=== PATIENT | female | born 1980 | race Caucasian/White ===

== ENCOUNTER 2020-08-05 17:40 | Emergency (ER) | payer OTHER, SELFPAY ==
[2020-08-05 17:49] VITALS: BP 128/75; PULSE 71; RESP 19; TEMP 36.6; O2SAT 97; BMI 25.0
[2020-08-05 18:48] LABS: RBC Urine None Seen (0-5/HPF); WBC Urine None Seen (0-5/HPF)
[2020-08-05 19:10] LABS: Bacteria Urine Moderate (10-30); Culture Indicated Urine Cult Not Indicated; Squamous Epithelial Cell Urine 0-1 /HPF (0-5/HPF)
--- NOTE | 2020-08-05 19:14 | DI.US.S_ITS ---
PROCEDURE: US OB <= 14 WEEKS FETUS INDICATIONS: CRAMPING OUTSIDE/PRIOR DATING DATA: Last menstrual period (LMP): 05/23/20. LMP-based estimated date of delivery (SIMON): 02/27/21 . First dating scan (date and location): This study 08/05/20 . Estimated date of delivery (SIMON) from first dating scan: demise. . TECHNIQUE: Real-time scanning was performed of the fetus and maternal pelvic organs, with image documentation. Endovaginal scanning was also performed to better visualize the fetus and maternal ovaries. COMPARISON: None. FINDINGS: Embryo: The crown-rump length is 1.3 cm, which would correlate with a gestational age of 7 weeks 3 days. No cardiac activity is observed. The gestational sac is irregular, and low in position consistent with spontaneous in progress. Measurement variability in dating: +/- 4 weeks by LMP, +/- 7 days by mean sac diameter (use before 6 weeks gestation if crown-rump length not able to be measured), +/- 5 days by crown-rump length (up to 8 weeks 6 days gestation), +/- 7 days by crown-rump length (up to 13 weeks 6 days gestation). Maternal organs: Ovaries normal on the right and not well seen on the left.. Limited images through the kidneys demonstrate no hydronephrosis. IMPRESSION: demise, spontaneous in progress, a crown-rump length of 1.3 cm would correlate with a gestational age of 7 weeks 3 days and no cardiac activity was observed over the course of the examination. Dictated by: Devan Rocha M.D. on 08/05/2020 at 20:30 Approved by: Devan Rocha M.D. on 08/05/2020 at 20:33
[2020-08-05 19:37] LABS: Add Manual Diff / Slide Review NO; Basophils Absolute Auto 100 /uL (0-100); Basophils Percent Auto 0.9 % (0-2); Eosinophils Absolute Auto 300 /uL (0-450); Eosinophils Percent Auto 2.4 % (2-4); Hematocrit 37.9 % (36-46); Hemoglobin 12.9 g/dL (12.0-16.0); Lymphocytes Absolute Auto 2800 /uL (1100-4500); Lymphocytes Percent Auto 24.7 % (25-40); Mean Corpuscular HGB Conc 34.1 % (30-36); Monocytes Absolute Auto 900 /uL (0-900); Monocytes Percent Auto 7.6 % (3-14); Neutrophils Absolute Auto 7400 /uL (1500-7000); Neutrophils Percent Auto 64.4 % (50-75); Platelet Count 201 X10^3/uL (150-400); Red Blood Cell Count 4.31 X10^6/uL (4.0-5.2); Red Cell Distribution Width 12.5 % (11.6-14.8); White Blood Cell Count 11.5 X10^3/uL (4.5-11.0)
[2020-08-05 19:52] LABS: Prothrombin Time 11.2 SECONDS (10.1-12.7)
[2020-08-05 19:55] LABS: PTT Partial Thromboplastin Tim 29 SECONDS (26.4-36.2)
--- NOTE | 2020-08-05 20:27 | ED_ITS ---
HPI - <Jeff Platt [facility] - Last Filed: 08/05/20 21:27> General Chief complaint: OB/Uterine Contractions Stated complaint: 10wks preg, possible miscarriage Time Seen by Provider: 08/05/20 19:05 Source: patient Mode of arrival: Family Vehicle Limitations: no limitations History of Present Illness HPI Narrative: This is a 39-year-old female, LMP on 05/23/20 with with positive home tests presents to ED with intermittent low abdominal cramping discomfort and small amount of vaginal spotting which started yesterday. Patient reports previous 2 pregnancies had spontaneous AB around 10th week. Patient denies chest pain, breathing difficulty, or lightheadedness. Patient recently moved to town and has not established primary care physician or OB care at this time. Patient denies urinary symptoms such as urgency, frequency, dysuria. Patient had not had passing clots or tissues. In the past with spontaneous ED, patient had not required surgical interventions and had passed product of conception on her own. Patient had not taken any medications for abdominal cramps. Patient reports she is aware of her blood type as A negative. Date of Last Menstrual Period: 05/23/20 Related Data Home Medications Medication Instructions Recorded Confirmed No Known Home Medications 08/05/20 08/05/20 Allergies Allergy/AdvReac Type Severity Reaction Status Date / Time No Known Drug Allergies Allergy Verified 08/05/20 17:55 Review of Systems <Jeff Platt [facility] - Last Filed: 08/05/20 21:27> Review of Systems Narrative: General: Denies fever, chills, fatigue, malaise, sweats. Respiratory: Denies dyspnea, cough, wheezing, hemoptysis, sputum. Cardiovascular: Denies chest pain, palpitations, orthopnea, edema. Gastrointestinal: Denies nausea, vomiting, abdominal pain, diarrhea, constipation, melena. : See HPI Musculoskeletal: Denies weakness, joint pain or bony pain. Skin: Denies rash, skin lesions, or other. Neurologic: Denies weakness, headache, numbness, change in speech, confusion, seizures, incoordination. Psychiatric: No concerning psychosocial issues. PMFSH - <Jeff Vallesque [facility] - Last Filed: 08/05/20 21:27> Past Medical History Medical history: Reports no medical history Surgical history: Reports no surgical history [employer]ENT[employer] history: Reports Spontaneous (x2) Date of Last Menstrual Period: 05/23/20 Exam <SALOME Ortiz - Last Filed: 08/05/20 21:27> Narrative Exam Narrative: GEN: Alert, oriented x 3, well appearing and nourished, and in no acute distress. Head: Normal cephalic, atraumatic. No scalp or temporal tenderness, palpable mass or rash. EYES: Pupils are equal, round, and reactive to light and accommodation. Extraocular muscles are intact bilaterally. There is no subconjunctival hemorrhage, exudate and sclera non-icteric. ENT: Hearing grossly intact. Nose without bleeding, purulent discharge or deviation. Mucous membrane moist, no mucosal lesion. Throat without erythema, tonsillar hypertrophy or exudate. Uvula in midline, airway patent. Neck: Trachea in midline. No JVD, non-tender without lymphadenopathy. No masses or thyroid megaly. Supple, non-tender and no meningeal signs. CARDIAC: Normal regular rate and rhythm without murmurs, gallops, or rubs. No chest wall tenderness. No peripheral edema, cyanosis or pallor. Capillary refill is less than 2 seconds. RESPIRATORY: Lungs are clear to auscultate bilaterally. No cough, wheezes, rales, or rhonchi. No stridor, respiratory distress, increase work of breathing, or accessary muscle used. ABD: Abdomen soft and non-distended. Bilateral lower abdomen tender to palpate. No guarding or rebound tenderness to palpate. Bowel sounds are normal in all 4 quadrants. There is no palpable masses or organomegaly. EXT: Full painless ROM of all extremities with no loss of sensation, strength, effusion or edema. SKIN: Warm, dry, normal color for patient. No erythema, lesions or rash over visible areas. BACK: Nontender without deformity or crepitance. No flank tenderness. NEUROLOGICAL: Alert and oriented to place, time and person. Sensation and motor function intact bilaterally. No facial droops, dysphasia. PSYCHIATRIC: Good judgement and reason, without hallucinations, abnormal affect or abnormal behaviors during the examination. Patient is not suicidal. Initial Vital Signs Initial Vital Signs: Vital Signs Temperature 97.8 F 08/05/20 17:49 Pulse Rate 71 08/05/20 17:49 Respiratory Rate 19 08/05/20 17:49 Blood Pressure 128/75 08/05/20 17:49 Pulse Oximetry 97 08/05/20 17:49 <Ritchie Huitron MD - Last Filed: 08/05/20 22:32> Initial Vital Signs Initial Vital Signs: Vital Signs Temperature 97.8 F 08/05/20 17:49 Pulse Rate 71 08/05/20 17:49 Respiratory Rate 19 08/05/20 17:49 Blood Pressure 128/75 08/05/20 17:49 Pulse Oximetry 97 08/05/20 17:49 Scores <DARIUS OrtizP - Last Filed: 08/05/20 21:27> GCS [place] coma scale eye opening: Spontaneous [place] coma scale verbal response: Orientated [place] coma scale motor response: Obey commands [place] coma scale total score: 15 Course <Jeff TejadaDARIUS GilbertP - Last Filed: 08/05/20 21:27> Orders Ordered: ED Orders 08/05/20 18:00 Urine Microscopic Stat 08/05/20 19:14 US OB <= 14 weeks fetus Stat 08/05/20 19:25 ABO RH Type Stat Complete Blood Count AUTO DIFF Stat HCG Quantitative /Beta subunit Stat Partial Thromboplastin Time Stat Prothrombin Time INR Stat Discontinued Medications Rho Immune Globulin (Hyperrho S-D) 1,500 unit IM NOW ONE Stop: 08/05/20 20:40 Last Admin: 08/05/20 21:00 Dose: 1,500 unit Documented by: RIRI Consultations Consultation #1: Dr. Lu consulted with US test result, lab finding, VS. She recommended to administer RhoGam IM injection and to f/u with the office by calling tomorrow to set up an appointment. Time: 20:50 Vital Signs Vital signs: Vital Signs - 8 hr 08/05/20 17:49 08/05/20 21:04 Temperature 97.8 F Pulse Rate 71 66 Respiratory Rate 19 Blood Pressure 128/75 136/85 Pulse Oximetry 97 100 <Ritchie Huitron MD - Last Filed: 08/05/20 22:32> Orders Ordered: ED Orders 08/05/20 18:00 Urine Microscopic Stat 08/05/20 19:14 US OB <= 14 weeks fetus Stat 08/05/20 19:25 ABO RH Type Stat Complete Blood Count AUTO DIFF Stat HCG Quantitative /Beta subunit Stat Partial Thromboplastin Time Stat Prothrombin Time INR Stat Discontinued Medications Rho Immune Globulin (Hyperrho S-D) 1,500 unit IM NOW ONE Stop: 08/05/20 20:40 Last Admin: 08/05/20 21:00 Dose: 1,500 unit Documented by: RIRI Vital Signs Vital signs: Vital Signs - 8 hr 08/05/20 17:49 08/05/20 21:04 Temperature 97.8 F Pulse Rate 71 66 Respiratory Rate 19 Blood Pressure 128/75 136/85 Pulse Oximetry 97 100 MDM - OB/Uterine Contractions <SALOME Ortiz - Last Filed: 08/05/20 21:27> Differential Diagnosis Differential diagnosis: Likely other (Miscarriage, threatened AB) Medical Records Attestation: I reviewed the patient's medical records. Lab Data Attestation: I reviewed the patient's lab results. Result diagrams: 08/05/20 19:25 Labs: Lab Results 08/05/20 08/05/20 08/05/20 Range/Units 18:00 19:25 19:25 WBC 11.5 H (4.5-11.0) X10^3/uL RBC 4.31 (4.0-5.2) X10^6/uL Hgb 12.9 (12.0-16.0) g/dL Hct 37.9 (36-46) % MCV 88.0 (80-100) fL MCH 30.0 (26-34) PG MCHC 34.1 (30-36) % RDW 12.5 (11.6-14.8) % Plt Count 201 (150-400) X10^3/uL Neut % (Auto) 64.4 (50-75) % Lymph % (Auto) 24.7 L (25-40) % Craven % (Auto) 7.6 (3-14) % Eos % (Auto) 2.4 (2-4) % Baso % (Auto) 0.9 (0-2) % Neut # (Auto) 7400 H (5260-8011) /uL Lymph # (Auto) 2800 (3292-0791) /uL Craven # (Auto) 900 (0-900) /uL Eos # (Auto) 300 (0-450) /uL Baso # (Auto) 100 (0-100) /uL PT 11.2 (10.1-12.7) SECONDS INR 1.0 (0.9-1.3) APTT 29 (26.4-36.2) SECONDS HCG, Quant mIU/mL Urine RBC None seen (0-5/HPF) Urine WBC None seen (0-5/HPF) Ur Squamous Epith Cells 0-1 /hpf (0-5/HPF) Urine Bacteria Moderate (10-30) H (None) Ur Culture Indicated? Cult not indicated Blood Type 08/05/20 08/05/20 Range/Units 19:25 19:25 WBC (4.5-11.0) X10^3/uL RBC (4.0-5.2) X10^6/uL Hgb (12.0-16.0) g/dL Hct (36-46) % MCV (80-100) fL MCH (26-34) PG MCHC (30-36) % RDW (11.6-14.8) % Plt Count (150-400) X10^3/uL Neut % (Auto) (50-75) % Lymph % (Auto) (25-40) % [place]ven % (Auto) (3-14) % Eos % (Auto) (2-4) % Baso % (Auto) (0-2) % Neut # (Auto) (5311-5819) /uL Lymph # (Auto) (0499-0605) /uL Craven # (Auto) (0-900) /uL Eos # (Auto) (0-450) /uL Baso # (Auto) (0-100) /uL PT (10.1-12.7) SECONDS INR (0.9-1.3) APTT (26.4-36.2) SECONDS HCG, Quant 8021.8 mIU/mL Urine RBC (0-5/HPF) Urine WBC (0-5/HPF) Ur Squamous Epith Cells (0-5/HPF) Urine Bacteria (None) Ur Culture Indicated? Blood Type A Negative Point of Care Testing Test Results Positive Urine Dip Bedside Urine Glucose Negative Bedside Urine Bilirubin - Negative Bedside Urine Ketone - Negative Urine Specific [place] 1.015 Bedside Urine Occult Blood +/- Bedside Urine pH 6.0 Bedside Urine Protein - Negative Bedside Urine Urobilinogen - Negative Bedside Urine Nitrite - Negative Bedside Urine Leukocytes - Negative Esterase Imaging Data US - OB: Radiologist's Impression: [address] [address] Ultrasound Report Signed Patient: Zuleyma Diaz EMR#: [id number] : 1980Acct:[id number] Age/Sex: 39 / FDate of Service: 08/05/20 Loc: ED Accession Number: [id number] Procedure: US OB <= 14 weeks fetus Ordering Provider: Jeff Platt PROCEDURE: US OB <= 14 WEEKS FETUS INDICATIONS: CRAMPING OUTSIDE/PRIOR DATING DATA: Last menstrual period (LMP): 05/23/20. LMP-based estimated date of delivery (SIMON): 02/27/21 . First dating scan (date and location): This study 08/05/20 . Estimated date of delivery (SIMON) from first dating scan: demise. . TECHNIQUE: Real-time scanning was performed of the fetus and maternal pelvic organs, with image documentation. Endovaginal scanning was also performed to better visualize the fetus and maternal ovaries. COMPARISON: None. FINDINGS: Embryo: The crown-rump length is 1.3 cm, which would correlate with a gestational age of 7 weeks 3 days. No cardiac activity is observed. The gestational sac is irregular, and low in position consistent with spontaneous in progress. Measurement variability in dating: +/- 4 weeks by LMP, +/- 7 days by mean sac diameter (use before 6 weeks gestation if crown-rump length not able to be measured), +/- 5 days by crown-rump length (up to 8 weeks 6 days gestation), +/- 7 days by crown-rump length (up to 13 weeks 6 days gestation). Maternal organs: Ovaries normal on the right and not well seen on the left.. Limited images through the kidneys demonstrate no hydronephrosis. IMPRESSION: demise, spontaneous in progress, a crown-rump length of 1.3 cm would correlate with a gestational age of 7 weeks 3 days and no cardiac activity was observed over the course of the examination. Dictated by: Devan Rocha M.D. on 08/05/2020 at 20:30 Approved by: Devan Rocha M.D. on 08/05/2020 at 20:33 MDM Narrative Medical decision making narrative: This is 39 year old female with with s pontaneous AB2 in 10th week presents to ED with scant amount of vaginal spotting last 2 and low abdominal cramping. Patient reports in the past patient had passed product of conception without surgical interventions. Patient is afebrile with stable Vital Sign. LMP 05/23/2020 with EGA of 10wk + 5 days. Stable H&H of 12.9/37.9 with very mild leukocytosis of 11.5. Normal coag test. BetahCG is 8021.8. Urine test was negative for nitrite or leukoesterase. Blood type is A Negative. US test shows no cardiac activities and the crown lump length is 1.3 which would correlate with EGA of 7 week +[address] Jarrett and recommended for RhoGam IM injection before discharged to home and to follow-up at clinic this coming week. Patient received full dose of RhoGAM that is only available strength as this time. With stable vital signs, without signs of infection, spontaneous AB in 1st week trimester, will treat with expectant management. Return precautions were discussed with kiesha souza. Patient declined medications for cramping in ED. patient advised to take [id number] Tylenol and or Motrin as needed for discomfort and to follow-up with Dr. Lu's office this coming week. Patient verbalized understanding and agreement with treatment plan. <Ritchie Huitron MD - Last Filed: 08/05/20 22:32> Lab Data Labs: Lab Results 08/05/20 08/05/20 08/05/20 Range/Units 18:00 19:25 19:25 WBC 11.5 H (4.5-11.0) X10^3/uL RBC 4.31 (4.0-5.2) X10^6/uL Hgb 12.9 (12.0-16.0) g/dL Hct 37.9 (36-46) % MCV 88.0 (80-100) fL MCH 30.0 (26-34) PG MCHC 34.1 (30-36) % RDW 12.5 (11.6-14.8) % Plt Count 201 (150-400) X10^3/uL Neut % (Auto) 64.4 (50-75) % Lymph % (Auto) 24.7 L (25-40) % [place]ven % (Auto) 7.6 (3-14) % Eos % (Auto) 2.4 (2-4) % Baso % (Auto) 0.9 (0-2) % Neut # (Auto) 7400 H (9844-6256) /uL Lymph # (Auto) 2800 (8806-2077) /uL [place]ven # (Auto) 900 (0-900) /uL Eos # (Auto) 300 (0-450) /uL Baso # (Auto) 100 (0-100) /uL PT 11.2 (10.1-12.7) SECONDS INR 1.0 (0.9-1.3) APTT 29 (26.4-36.2) SECONDS HCG, Quant mIU/mL Urine RBC None seen (0-5/HPF) Urine WBC None seen (0-5/HPF) Ur Squamous Epith Cells 0-1 /hpf (0-5/HPF) Urine Bacteria Moderate (10-30) H (None) Ur Culture Indicated? Cult not indicated Blood Type 08/05/20 08/05/20 Range/Units 19:25 19:25 WBC (4.5-11.0) X10^3/uL RBC (4.0-5.2) X10^6/uL Hgb (12.0-16.0) g/dL Hct (36-46) % MCV (80-100) fL MCH (26-34) PG MCHC (30-36) % RDW (11.6-14.8) % Plt Count (150-400) X10^3/uL Neut % (Auto) (50-75) % Lymph % (Auto) (25-40) % [place] % (Auto) (3-14) % Eos % (Auto) (2-4) % Baso % (Auto) (0-2) % Neut # (Auto) (0453-2191) /uL Lymph # (Auto) (0165-6094) /uL [place] # (Auto) (0-900) /uL Eos # (Auto) (0-450) /uL Baso # (Auto) (0-100) /uL PT (10.1-12.7) SECONDS INR (0.9-1.3) APTT (26.4-36.2) SECONDS HCG, Quant 8021.8 mIU/mL Urine RBC (0-5/HPF) Urine WBC (0-5/HPF) Ur Squamous Epith Cells (0-5/HPF) Urine Bacteria (None) Ur Culture Indicated? Blood Type A Negative Point of Care Testing Test Results Positive Urine Dip Bedside Urine Glucose Negative Bedside Urine Bilirubin - Negative Bedside Urine Ketone - Negative Urine Specific [place] 1.015 Bedside Urine Occult Blood +/- Bedside Urine pH 6.0 Bedside Urine Protein - Negative Bedside Urine Urobilinogen - Negative Bedside Urine Nitrite - Negative Bedside Urine Leukocytes - Negative Esterase Discharge Plan Departure Patient Disposition: Home Clinical Impression: Spontaneous in first trimester Discharge Date/Time: 08/05/20 21:20 Instructions: DI for Miscarriage Activity Restrictions/Additional Instructions: You have been diagnosed with [miscarriage during 1st trimester, spontaneous . Stable blood count at this time. Ultrasound does not see cardiac activities. ]. What to do: *Take your medications as directed. You can take [id number] Tylenol and or Motrin as needed for discomfort. *Follow up with your primary care provider in 2-3 days, call for an appointment. Please call Dr. Lu's office tomorrow to make a follow-up appointment. Let them know you were seen in the ED and that we asked you to be seen in follow up. *Return to ED if you have any new, worsening, or concerning symptoms, such as [severe pain, severe vaginal bleeding that requires you to pad very hour for 3 hours, fever, chest pain, breathing difficulty, unable to tolerate fluids, lightheadedness or any acute concerns]. Prescriptions: No Action No Known Home Medications RF: 0 Referrals: [facility] [Outside] Voss,MD Kirsten [Physician] - <Ritchie Huitron MD - Last Filed: 08/05/20 22:32> Cosign ED Attending Cosignature Attestation: I was immediately available in the dep artment for consultation. This documentation has been reviewed and I agree with assessment and plan. Supervised by Ritchie Huitron MD
[2020-08-05 20:54] LABS: HCG Quantitative /Beta subunit 8021.8 mIU/mL
[2020-08-05] MEDS: RHO(D) IMMUNE GLOBULIN 1,500 UNIT SYRINGE 1500 UNIT IM (21:00)
[2020-08-05 21:04] VITALS: BP 136/85; PULSE 66; O2SAT 100
== END 2020-08-05 21:20 | disposition home or self-care (01) ==
PROVIDERS: Emergency Medicine; Emergency Provider Nurse Practitioner Family
DX: O03.9 Complete or unspecified spontaneous abortion without complication (principal)
CPT/HCPCS: 76801; 76817; 81003; 81015; 81025; 84702; 85025; 85610; 85730; 86900; 86901; 96372; 99283; 99284; J2790

== ENCOUNTER → 2020-09-14 11:27 | Outpatient (CLI) | payer OTHER, MEDICAID, SELFPAY ==
[2020-09-14 12:14] LABS: COVID19 -Nasal RAPID Negative (Negative)
== END ==
PROVIDERS: Visit Provider Obstetrics & Gynecology
DX: Z03.818 Encounter for observation for suspected exposure to other biological agents ruled out (principal)
CPT/HCPCS: 87635

== ENCOUNTER 2020-09-17 08:05 | Day surgery (SDC) | payer OTHER, MEDICAID, SELFPAY ==
[2020-09-14 08:28] VITALS: BMI 30.4
[2020-09-17] VITALS (10 sets, daily range): BP systolic 118–148; BP diastolic 58–86; PULSE 50–90; RESP 11–17; TEMP 36.2–36.9; O2SAT 98–100; BMI 29.2
--- NOTE | 2020-09-17 | PATH_ITS ---
Note [facility] Accession Number: [id number] TESTS RESULT FLAG UNITS REF RANGE LAB Clinician Provided Cytology Information No. of containers..01 Other (Miscellaneous) 01 RIGHT OVARIAN CYST F Clinician ICD10: N84.0 DIAGNOSIS: 01 RIGHT OVARIAN CYST F NEGATIVE FOR MALIGNANT CELLS. THIS INTERPRETATION INCLUDES EVALUATION OF A CELL BLOCK. Pathologist ICD10: N84.0 01 Alethea Gonzalez MD, Pathologist NPI- [id number] [place], Field Hockey Coach ([facility]) 01 2 CC, PINK, CLEAR RECEIVED: FRESH IN ORANGE CAP CONTAINER. /VDU 09/18/2020 0643 Local FLAG LEGEND: L-Low Normal,H-High Normal,LL-Alert Low,HH-Alert High <-Panic Low,>-Panic High,A-Abnormal,AA-Critical Abnormal Performed at: 01 =Z [facility] [address], [place] [address] Gerry Charles MD, Performed at: 01 [facility] [address], [place], [place] [id number] MD Gerry Charles MD Phone: [phone]
[2020-09-17] MEDS: LACTATED RINGERS 1,000 ML 100 ML IV (08:43)
--- NOTE | 2020-09-17 09:29 | PM.HP.1 ---
History of Present Illness History of Present Illness Date Patient Seen: 09/17/20 Time Patient Seen: 09:29 Chief complaint: [facility] Narrative: Patient is a 39-year-old 3 para 0030 who presents for a laparoscopic removal of a complex right ovarian cyst and hysteroscopic removal an endometrial polyp Patient History Medical History (Updated 09/17/20 @ 09:30 by Nadeen Henderson MD) Chicken pox (~1981) Genital warts (~2009) History of recurrent miscarriages Wears glasses Surgical History (Updated 09/04/20 @ 20:35 by Maya Phillips) Anesthesia History of eye surgery History of placement of ear tubes History of tonsillectomy and adenoidectomy (~1985) [place] teeth removed (~1999) Family & Social History Social History: household members significant other Tobacco & Substance use: Smoking Status Never smoker alcohol intake never alcohol intake frequency a few times a week Substance Use Type does not use Meds Home Medications and Allergies Home Medications Medication Instructions Recorded Confirmed Type No Known Home Medications 08/05/20 09/14/20 History Allergies Allergy/AdvReac Type Severity Reaction Status Date / Time No Known Drug Allergies Allergy Verified 09/17/20 08:29 Exam Vital Signs (past 8 hours): - 09/17/20 08:44 Temperature 98.4 F Pulse Rate 59 L Respiratory Rate 16 Blood Pressure 118/77 Pulse Oximetry 98 Oxygen Delivery Method Room Air Narrative Exam Narrative: HEENT: No thyromegaly, no anterior cervical or supraclavicular lymphadenopathy. Lungs:Clear to auscultation bilaterally, no wheezes. Cardiovascular: Regular rate and rhythm, no murmurs, rubs, or gallops. Abdomen: No scars. No hepatosplenomegaly. No masses palpable. External genitalia: Normal Vagina: Normal Cervix: Normal Bimanual exam: 6 Week size anteverted uterus. Mobile. Rectal: No masses. Ultrasound: 5 cm complex right ovarian cyst. Endometrial thickness consistent with a polyp. Assessment & Plan Assessment and plan (1) Complex cyst of right ovary: Status: Acute (2) Endometrial polyp: Status: Acute Assessment & Plan narrative: Assessment: 39-year-old 3 para 0030 with a complex right ovarian cyst and an endometrial polyp Plan: Laparoscopic resection of the right ovarian cyst and hysteroscopic removal of the endometrial polyp The risks, benefits, and alternatives to the procedure were explained to the patient. The risks including bleeding, infection, uterine perforation, injury to the bowel, bladder, or ureters. She understands these risks and agrees to proceed. A full par Q was held and consent form was signed. COVID-19 COVID-19 status: Negative Result date/Date tested (Pos, Neg/Pending): 09/14/20
--- NOTE | 2020-09-17 09:31 | PM.PREOP ---
Pre-operative Note COVID-19 COVID-19 status: Negative Result date/Date tested (Pos, Neg/Pending): 09/14/20 Interval Note History & Physical reviewed/Exam performed by Physician: Yes Changes to H&P: No H&P completed within 30 days and has changed as indicated here:: 09/17/2020
--- NOTE | 2020-09-17 10:19 | SUR.OPER ---
Lithotomy on padded OR bed, head on pillow, arms secured on padded arm boards at <90 degrees abduction. Legs secured in padded yellow fins stirrups.
[2020-09-17] MEDS: BUPIVACAINE 0.5% W/ EPI (PF) 30 ML VIAL INJ (10:27)
--- NOTE | 2020-09-17 11:10 | P.OP_ITS ---
Operative Date/Time/Diagnoses Date of procedure: 09/17/20 Time of procedure: 11:10 Pre-op diagnosis: Right ovarian cyst Endometrial polyp Post-op diagnosis: same Procedure & Clinicians Procedure: Procedures Operation Date: 09/17/20 09:15 Actual Procedures Side Surgeon p Laparoscopic Ovarian Cystectomy Right Nadeen Henderson MD s Hysteroscopy D&C w/ polypectomy Nadeen Henderson MD Indications: Right ovarian cyst Endometrial polyp Surgeon: Nadeen Henderson Anesthesia Type: General and Local Operative Notes Findings: 3 cm right ovarian cyst Normal liver and gallbladder Normal appendix Normal uterus Normal tubes bilaterally Normal left ovary. Closure Type: primary Specimen(s): endometrial curettings and other (Right ovarian cyst and fluid) Estimated blood loss (mL): 5 Procedure in detail: After informed consent was obtained, the patient was taken to the operating room where she was placed in the dorsal supine position. After adequate general endotracheal anesthesia was achieved was placed in the dorsal lithotomy position, and prepped, and draped in the usual sterile fashion. A time-out was performed. A bivalve speculum was placed into the vagina and the anterior lip of the cervix grasped with a single-tooth tenaculum. The cervical os was sequentially dilated until the Zumi uterine manipulator could pass easily into the endometrial cavity. The single-tooth tenaculum was removed from the anterior lip of the cervix. The bivalve speculum was removed from the vagina. Attention was turned to the abdomen where 6 cc of 0.5% Marcaine with epinephrine were injected in the umbilical fold. A 5 mm incision was made. The Veress needle was placed into the peritoneal cavity, and its placement confirmed by aspiration and drop test. The abdominal cavity was insufflated with 4.3 L of CO2. The Veress needle was removed, and a 5 mm trocar was placed without difficulty. Two other 5 mm incisions were made after 6 cc of 0.5% Marcaine with epinephrine were injected, these were placed 4 cm lateral to the midline. 5 mm trocars were placed under direct visualization. The liver and gallbladder were examined and were found to be normal. The appendix was normal. The uterus was normal. There was a cyst on the right ovary. The tubes were normal. The utero-ovarian ligament on the right side was grasped with an atraumatic grasper. The point aspirated was placed into the right ovarian cyst and it was drained of approximately 6 cc of clear yellow fluid. This was sent to cytology. The cyst wall was grasped with an atraumatic grasper, and using the Endo Ritesh, the cyst wall was excised. The end of the Endo Ritesh was used for cautery and to ensure hemostasis. The instruments were removed from the abdomen. The CO2 was allowed to escape. The trocars were removed. The incisions were repaired with 4-0 Biosyn in a subcuticular fashion. Steri-Strips, and Allevyn dressings were placed. Attention was turned back to the vagina where the Zumi uterine manipulator was removed from the uterus. The bivalve speculum was placed in the vagina. A single-tooth tenaculum was placed on the anterior lip of the cervix. The hysteroscope passed easily into the endometrial cavity. Both fallopian tube ostia were observed. Sharp curettage was performed yielding moderate amount of endometrial curettings. The instruments were removed from the uterus. The single-tooth tenaculum was removed from the anterior lip of the cervix. The bi valve speculum was removed from the vagina. Sponge, lap, and instrument counts were correct x2. The patient tolerated the procedure well, and was taken to PACU in stable condition. Complications: none Post-operative Condition: stable Disposition: PACU Plan for aftercare: Home after recovery
== END 2020-09-17 12:50 | disposition home or self-care (01) ==
PROVIDERS: Referring Provider Obstetrics & Gynecology; Visit Provider Obstetrics & Gynecology
PROC: (CPT 58662; principal; 2020-09-17 09:15)
PROC: 0UDB8ZZ Extraction of Endometrium, Via Natural or Artificial Opening Endoscopic (ICD-10-PCS; CPT 58558; 2020-09-17 09:15)
DX: N83.291 Other ovarian cyst, right side (principal); N84.0 Polyp of corpus uteri
CPT/HCPCS: 58662; 58558; J1100; J2250; J2405; J2704; J3010

== ENCOUNTER → 2020-10-23 08:32 | Outpatient (CLI) | payer OTHER, MEDICAID, SELFPAY ==
[2020-10-23 10:05] LABS: Prolactin 16.1 ng/mL (3.0-18.6)
[2020-10-23 10:13] LABS: Free T4, Direct Thyroxine 1.09 ng/dL (0.78-2.19)
[2020-10-23 10:27] LABS: Thyroid Stimulating Hormone 2.27 uIU/mL (0.47-4.68)
[2020-10-23 17:20] LABS: Vitamin D 25 Hydroxy (D3) 44.8 ng/mL (30.0-100.0)
[2020-10-25 19:43] LABS: ANA Screen, IFA Positive (.)
[2020-10-26 20:36] LABS: Dilute Russell Viper Venom 41.6 sec (0.0-47.0); Lupus Reflex Interpretation Comment: (.); PTT-LA 36.8 sec (0.0-51.9)
[2020-10-27 05:11] LABS: Cardiolipin Ab IgA <9 APL U/mL (0-11); Cardiolipin Ab IgG <9 GPL U/mL (0-14); Cardiolipin Ab IgM 23 MPL U/mL (0-12)
[2020-11-20 10:44] LABS: Cardiolipin IgA NEGATIVE
== END ==
PROVIDERS: Referring Provider Obstetrics & Gynecology; Visit Provider Obstetrics & Gynecology
DX: N96 Recurrent pregnancy loss (principal)
CPT/HCPCS: 36415; 81240; 81241; 81291; 82306; 83520; 84146; 84439; 84443; 85598; 85613; 86038; 86147

== ENCOUNTER → 2021-03-07 08:29 | Outpatient (CLI) | payer OTHER, MEDICAID, SELFPAY ==
[2021-03-07 09:56] LABS: Alanine Aminotransferase 28 IU/L (<35); Albumin 4.3 g/dL (3.5-5.0); Albumin Globulin Ratio 1.6 (1.0-2.8); Alkaline Phosphatase 77 U/L (38-126); Aspartate Aminotransferase 37 IU/L (14-36); BUN Creatinine Ratio 15.7 (6-22); Bilirubin Total 0.3 mg/dL (0.2-1.3); Blood Urea Nitrogen 11 mg/dL (7-17); Calcium 9.5 mg/dL (8.4-10.2); Carbon Dioxide 26 mmol/L (22-32); Chloride 106 mmol/L (98-107); Cholesterol 194 mg/dL (140-199); Estimated Glomerular Filt Rate > 60.0 mL/min (>60); Globulin 2.7 g/dL (1.7-4.1); Glucose 93 mg/dL (70-100); HDL Cholesterol 59 mg/dL (40-60); HEMOLYSIS < 15 (0-50); LDL Cholesterol Calculated 113 mg/dL (<100); Potassium 4.3 mmol/L (3.4-5.1); Sodium 138 mmol/L (137-145); Triglycerides 109 mg/dL (35-150)
[2021-03-07 10:12] LABS: Free T3, Triiodothyronine Free 3.33 pg/mL (2.77-5.27)
[2021-03-07 10:26] LABS: TSH w/ Reflex to FT4 1.85 uIU/mL (0.47-4.68)
== END ==
PROVIDERS: PCP Family Medicine; Referring Provider Family Medicine; Visit Provider Family Medicine
DX: L30.9 Dermatitis, unspecified (principal); L65.9 Nonscarring hair loss, unspecified; N96 Recurrent pregnancy loss
CPT/HCPCS: 36415; 80053; 80061; 83036; 84439; 84443; 84481

== ENCOUNTER → 2021-03-19 15:49 | Outpatient (CLI) | payer OTHER, MEDICAID, SELFPAY ==
--- NOTE | 2021-03-19 15:50 | DI.US.S_ITS ---
PROCEDURE: US PELVIC COMPLETE INDICATIONS: Pelvic pain TECHNIQUE: Real-time scanning was performed of the pelvic organs, with image documentation. Additional endovaginal scanning was necessary due to incomplete visualization of the adnexal and endometrial structures by transabdominal scanning. COMPARISON: [facility], US, US PELVIC COMPLETE, 09/04/2020, 11:03. FINDINGS: Uterus: Uterus is normal in size at 4.8 x 3.1 x 4.4 cm. The endometrium measures 5 mm in combined thickness. Ovaries: The right ovary measures 2.5 x 3.4 x 2.4 cm and demonstrates a normal appearing cystic follicle that measures up to 1.7 cm. The left ovary measures 1.7 x 3.2 x 2 cm. The ovaries have a normal sonographic appearance. No adnexal masses are seen. Other: No pathologic free abdominal or pelvic fluid. IMPRESSION: Normal pelvic ultrasound. Dictated by: Ney Carrion M.D. on 03/19/2021 at 15:29 Approved by: Ney Carrion M.D. on 03/19/2021 at 15:29
== END ==
PROVIDERS: PCP Family Medicine; Referring Provider Obstetrics & Gynecology; Visit Provider Obstetrics & Gynecology
DX: R10.2 Pelvic and perineal pain (principal)
CPT/HCPCS: 76830; 76856